=== PATIENT | male | born 1935 | race Caucasian/White ===

== ENCOUNTER → 2017-12-13 | Outpatient (CLI) | payer MEDICARE ==
--- NOTE | 2017-12-13 20:40 | MR ---
EXAMINATION TYPE: MR brain wo/w con DATE OF EXAM: 12/13/2017 COMPARISON: NONE HISTORY: Impaired cognitive function CONTRAST: Performed utilizing 7.5 mL intravenous Gadavist gadolinium contrast. TECHNIQUE: Multiplanar, multiecho imaging on a 3.0 [place] magnet is performed through the brain. Stud y is performed within 24 hours of arrival to the hospital. The craniovertebral junction is normal. The pituitary is normal. Diffusion-weighted imaging is performed. No abnormal hyperintensity is present to suggest an acute i ntracranial infarct or acute ischemic change. There is confluent periventricular and deep white matter hyperintensities on inversion recovery weigh [place] sequences. Findings can be compatible with chronic white matter ischemic changes. Expected to aff ect is evident on the ventricles. Ventricles and sulci are very prominent for the patient age. Temporal horn dilatation is not evident. No abnormal enhancement is evident. There is mucosal thickening within ethmoid air cells and the right maxillary sinus. IMPRESSIONS: 1. 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
== END | disposition home or self-care (01) ==
LOC: RADMRIMAIN 18:38
PROVIDERS: ATTEND Family Medicine
DX: G31.9 Degenerative disease of nervous system, unspecified (principal); I67.82 Cerebral ischemia
CPT/HCPCS: 70553; A9581